=== PATIENT | male | born 1960 | race Caucasian/White ===

== ENCOUNTER 2025-06-21 07:33 | Emergency (ER) | payer MEDICAID ==
[~2025-06-21] VITALS: Ht 170.2 cm; Wt 78.0 kg
[2025-06-21 07:40] VITALS: BP 141/77; PULSE 113; RESP 18; TEMP 37.1; O2SAT 99
== END 2025-06-21 08:28 | disposition left against medical advice (07) ==
LOC: CANBEDREQ 08:10 → ER 08:26
DX: R00.0 Tachycardia, unspecified (principal); R41.82 Altered mental status, unspecified; E11.9 Type 2 diabetes mellitus without complications; Z87.891 Personal history of nicotine dependence
CPT/HCPCS: 99283